=== PATIENT | male | born 1985 | race Hispanic/Latino ===

== ENCOUNTER → 2017-10-03 | Outpatient (CLI) | payer BC ==
--- NOTE | 2017-10-03 14:00 | Diagnostic Imaging Report ---
PROCEDURE:US LIVER COMPARISON:None. INDICATIONS:HX OF NEPHROLITHIASIS, FLANK PAIN FINDINGS: Limited evaluation secondary to overlying bowel gas. LIVER: Size:15.5 cm in the right midclavicular line, normal Appearance:Increased echogenicity, smooth contour Mass:No focal masses GALLBLADDER: Stones/Sludge:None Appearance:No wall thickening, pericholecystic fluid or hydrops. Trace fatty sparing adjacent to the gallbladder. Sonographic Ma's Sign:Negative BILE DUCTS: Intrahepatic Ducts:No dilation Extrahepatic Ducts:Common bile duct measures 0.4 cm, no dilatation. PANCREAS: Not visualized secondary to overlying bowel gas. RIGHT KIDNEY: Please refer to same day renal ultrasound for renal findings. VESSELS: Aorta:Visualized portions are normal. Inferior Vena Cava:Visualized portions are normal. Main Portal Vein:0.9 cm, normal size with hepatopetal flow. FREE FLUID: No ascites or pleural effusions. CONCLUSION: Hepatic steatosis. Please refer to same day US retroperitoneum for renal findings. Dictated by: Dean Whalen M.D. on 10/03/2017 at 14:03 Electronically approved by: Dean Whalen M.D. on 10/03/2017 at 14:03
--- NOTE | 2017-10-03 14:05 | Diagnostic Imaging Report ---
PROCEDURE:US RETROPERITONEAL ( KIDNEY ). COMPARISON:None. INDICATIONS:HX OF NEPHROLITHIASIS, FLANK PAIN TECHNIQUE: Shell-scale and color sonographic images of the bilateral kidneys and bladder where obtained in transverse and longitudinal planes. FINDINGS: RIGHT KIDNEY: 11.1 x 6.7 x 5.5 cm, cortex 2.6 cm Cysts: None Solid masses: None Stones: Interpolar region 0.7 x 0.4 x 0.5 cm echogenic focus does not demonstrate posterior acoustic shadowing or twinkle artifact. Hydronephrosis: None Echogenicity: Normal LEFT KIDNEY: 10.6 x 5.9 x 5.4 cm, cortex 2.4 cm Cysts: None Solid masses: None Stones: None Hydronephrosis: None Echogenicity: Normal Bladder: Normal. Both ureteral jets visualized. CONCLUSION: 1. Punctate echogenic focus in the right kidney may represent a renal calculus or prominent focus of renal sinus fat. 2. Otherwise, unremarkable ultrasound of the kidneys and bladder. Dictated by: Dean Whalen M.D. on 10/03/2017 at 14:08 Electronically approved by: Dean Whalen M.D. on 10/03/2017 at 14:08
== END ==
LOC: US 11:40
PROVIDERS: ATTEND Family Medicine
DX: Z87.442 Personal history of urinary calculi (principal)
CPT/HCPCS: 76705; 76770